=== PATIENT | female | born 1940 | race Hispanic/Latino ===

== ENCOUNTER 2017-06-11 10:00 | Inpatient (IN) | payer MEDICARE ==
[2017-06-11 12:27] VITALS: BMI 29.5
[2017-06-18] MEDS ORDERED: CEFAZOLIN/Water 2 GM/20 ML SYRINGE ONE (06:31)
[2017-06-18] MEDS ORDERED: Thrombin 5000 UNITS/5 ML VIAL ONE (06:37)
[2017-06-18] MEDS ORDERED: Sodium Chloride 0.9% 10 ML ONE (06:37)
[2017-06-18] MEDS ORDERED: Fentanyl 250 MCG/5 ML VIAL ONE (07:00)
[2017-06-18] MEDS ORDERED: Midazolam HCl 2 mg/2 ml Vial ONE (07:01)
[2017-06-18] MEDS ORDERED: PHENYLEPHRINE-NS 100 MCG/ML 10 ML SYRINGE ONE (07:40)
[2017-06-18] MEDS ORDERED: Lidocaine 1% PF 5 ML VIAL ONE (07:40)
[2017-06-18] MEDS ORDERED: Ondansetron HCl/PF 4 MG/2 ML Vial ONE (07:40)
[2017-06-18] MEDS ORDERED: Glycopyrrolate 0.2 MG/ML 5 ML SYRINGE ONE (07:40)
[2017-06-18] MEDS ORDERED: Dexamethasone 20 MG/5 ML VIAL ONE (07:40)
[2017-06-18] MEDS ORDERED: Propofol 200 MG/20 ML VIAL ONE (07:40)
[2017-06-18] MEDS ORDERED: Promethazine HCl 25 MG/ML VIAL IM PRN ×2 (10:10→10:46)
[2017-06-18] MEDS ORDERED: Promethazine HCl 25 MG/ML VIAL SLOW IVP PRN (10:10)
[2017-06-18] MEDS ORDERED: Ondansetron HCl/PF 4 MG/2 ML Vial IVP PRN (10:10)
[2017-06-18] MEDS ORDERED: Mag-Al 1200 mg/1200 mg/30 ML UDCUP PO PRN (10:46)
[2017-06-18] MEDS ORDERED: Acetaminophen/Codeine 30-300mg Tablet PO PRN (10:46)
[2017-06-18] MEDS ORDERED: HYDROcodone/Acetaminophen 7.5/325 mg Tablet PO PRN (10:46)
[2017-06-18] MEDS ORDERED: Bisacodyl 10 MG SUPP PR PRN (10:46)
[2017-06-18] MEDS ORDERED: Fleet Enema 133 ML BOT PR PRN (10:46)
[2017-06-18] MEDS ORDERED: tiZANidine HCl 4 MG TAB PO PRN (10:46)
[2017-06-18] MEDS ORDERED: traMADol HCl 50 MG TAB PO PRN (10:46)
[2017-06-18] MEDS ORDERED: Acetaminophen 325 MG TAB PO PRN (10:46)
[2017-06-18] MEDS ORDERED: Milk Of Magnesia 30 ML UDCUP PO PRN (10:46)
[2017-06-18] MEDS ORDERED: Fentanyl 100 MCG/2 ML VIAL ONE (10:49)
--- NOTE | 2017-06-18 12:35 | OP ---
DATE OF SURGERY: 06/18/2017 SURGEON: Omer Acosta M.D. [employer]: Kevin Avila PA-C. OR: OR #5. WOUND: Type 1 wound. 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 POSTPROCEDURE DIAGNOSES: Multilevel cervical stenosis with myelopathy and radiculopathy with chroni c steroid and methotrexate use. PROCEDURE: 1. Anterior C4-C5, C5-C6, C6-C7 diskectomies and decompression of the spinal cord and nerve roots a nd preparation of the endplates C4-C5, C5-C6, C6-C7. 2. Placement of interbody spacer, C4-C5, C5-C6, C6-C7 arthrodesis packed with local bone autograft obtained from same incision and allograft, C4-C5, C5-C6, C6-C7. 3. Anterior cervical plate and screw fixation C4, C5, C6, C7. 4. Use above her operative microscope for microdissection. PROCEDURE: After informed consent was obtained from the patient, the patient brought to OR 5. [facility] er patient pause and identification was carried out. She was placed under excellent general endotra cheal anesthesia and positioned supine on the operating room table. The C4, C5, C6, C7 segments wer e identified. An oblique pinky was made on the right side of the neck to allow for approach to this region. This area was sterilely cleansed, prepared, and draped. Proper patient pause and identific ation was carried out. The wound was then opened with a combination of sharp, monopolar and blunt d issection, and we proceeded lateral to the tracheoesophageal bundle and medial to the right carotid sheath. We identified the prevertebral layer of deep cervical fascia. We then dissected at the C4, C5, C6, C7 segments, the longus colli was swept laterally and retractors were placed following loca lization. Distraction then occurred at C4-C5 and a diskectomy was performed with the use of micros ope for microdissection. Satisfied with our decompression, spacer of appropriate dimension was plac ed and had been packed with local bone autograft obtained from same incision and allograft at C4-C5, distraction occurred at C5-C6 and diskectomy at C5-C6 was performed interbody spacer of appropriate dimension was then placed at C5-C6 packed with graft for arthrodesis at C5-C6. Distraction at C6-C 7 then occurred and then a diskectomy was performed at C6-C7 and interbody spacer of appropriate dim ension was then placed at C6-C7 for arthrodesis. We were satisfied with our construct at that point . Then a plate was placed and affixed to the cervical spine at C4, C5, C6, C7. Final tightening oc curred. Copious irrigation occurred throughout and hemostasis was maximized. The wound was closed in anatomic layers. Satisfied with both gross and fluoroscopic visualization of our construct the w ound was closed over a drain. The patient then emerged from anesthesia.
[2017-06-18] MEDS: CEFAZOLIN/Water 2 GM/20 ML SYRINGE SLOW IVP SCH ×2 (14:42→21:13)
[2017-06-18] MEDS: Sodium Chloride 0.9% 1,000 ML IV SCH (18:57)
[2017-06-18] MEDS ORDERED: FLU VACC TS2017-18 (>65YR) 0.5 ML SYRINGE IM ONE (19:30)
[2017-06-18] MEDS: predniSONE 5 MG TAB PO SCH (21:13)
[2017-06-19] MEDS: Sodium Chloride 0.9% 1,000 ML IV SCH ×2 (02:59→15:26)
[2017-06-19] MEDS: CEFAZOLIN/Water 2 GM/20 ML SYRINGE SLOW IVP SCH ×3 (05:01→21:18)
[2017-06-19] MEDS: Potassium Chloride 10 MEQ TAB PO SCH (07:53)
[2017-06-19] MEDS: Escitalopram Oxalate 10 mg Tablet PO SCH (07:54)
[2017-06-19] MEDS: Lisinopril 10 MG TAB PO SCH (07:54)
[2017-06-19] MEDS: predniSONE 5 MG TAB PO SCH ×2 (07:54→20:37)
--- NOTE | 2017-06-19 10:50 | PRG ---
DATE OF SERVICE: 06/19/2017 Ms. Anguiano is doing well, postoperative day 1. She is tolerating orals and ambulating. She feels as if her upper and lower extremities are improved compared to before surgery. Her drain output has bee n approximately 75 mL. We will monitor this, this morning. We will arrange for home health per the family's request. Her exam is stable from preoperatively.
[2017-06-20] MEDS: Sodium Chloride 0.9% 1,000 ML IV SCH (01:53)
[2017-06-20] MEDS: CEFAZOLIN/Water 2 GM/20 ML SYRINGE SLOW IVP SCH (06:16)
[2017-06-20] MEDS: Lisinopril 10 MG TAB PO SCH (08:49)
[2017-06-20] MEDS: predniSONE 5 MG TAB PO SCH (08:49)
[2017-06-20] MEDS: Escitalopram Oxalate 10 mg Tablet PO SCH (08:49)
[2017-06-20] MEDS: Potassium Chloride 10 MEQ TAB PO SCH (08:49)
[2017-06-20 11:40] VITALS: TEMP 98.7
[2017-06-20 13:22] VITALS: BP 172/85
--- NOTE | 2017-06-20 13:25 | PRG ---
DATE OF SERVICE: 06/20/2017 This is a subsequent inpatient progress note. Ms. Anguiano is now postoperative day #2 having undergon e C4-C7 ACDF with Dr. Acosta. The patient states she is doing very well postoperatively. She is not taking any pain medication. She denies any arm pain. She states she feels as though her hands are functioning better postoperatively. She has been up walking to the bathroom and is tolerating a chinedu r liquid diet. She remains at neurologic baseline with good strength in the bilateral upper and bila teral lower extremities. Her BRANDEN drain was removed today without difficulty. We did discuss postoper ative activity restrictions and I would like her to continue to wear her [place] collar at all times an d use a [place] collar for showers until her next followup appointment with us. She will be dis charged later today to senior living and she is agreeable to this.
== END 2017-06-20 11:30 | disposition swing bed (61) | DRG 473 ==
LOC: SURG A 06-18 06:16
PROVIDERS: ADMIT Surgery; ATTEND Surgery
PROC: 0RG20A0 Fusion of 2 or more Cervical Vertebral Joints with Interbody Fusion Device, Anterior Approach, Anterior Column, Open Approach (ICD-10-PCS; principal; 2017-06-18)
PROC: 0RB30ZZ Excision of Cervical Vertebral Disc, Open Approach (ICD-10-PCS; 2017-06-18)
DX: M48.02 Spinal stenosis, cervical region (principal); Z23 Encounter for immunization; M54.12 Radiculopathy, cervical region
CPT/HCPCS: 76001; 90471; 90682; 90732; A4216; C1713; G0008; G0009; G8978-GP-CL; G8979-GP-CJ; G8987-GO-CK; G8988-GO-CI; J0131; J1100; J2001; J2250; J2405; J2550; J2704; J3010; J3490; Q2036

== ENCOUNTER 2020-01-08 12:34 | Outpatient (CLI) | payer MEDICARE, OTHER ==
--- NOTE | 2020-01-08 13:33 | CT ---
CT BRAIN NONCONTRAST: DATE: 01/08/2020 HISTORY: 79-year-old female with movement abnormality and generalized weakness. Preoperative CT. FINDINGS: There is no evidence of acute intra-axial or extra-axial hemorrhage. There is no midline shift or any other mass effect. There is no extra-axial fluid collection. Moderate ventriculomegaly involving the bodies of the lateral ventricles, probably due to central atrophy. Mild ventriculomegaly involvin g third ventricle. Calvarium is intact. There is diffuse brain parenchymal volume loss. There are low attenuation areas in the white matter. These are nonspecific, but in a patient of this age, they are probably chronic ischemic white matter changes due to microvascular atherosclerosis. Symmetrical bilateral basal ganglionic globus pallidus calcifications. In addition to midline tiny ca lcification at anterior interhemispheric falx, there is also a tiny focal right paramedian frontal calcification. 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 This was present on prior CT of 04/12/2009. IMPRESSION: 1) No acute intracranial findings. 2) involutional changes and chronic ischemic white matter changes.
--- NOTE | 2020-01-08 14:41 | CT ---
CT OF THE CERVICAL SPINE WITHOUT CONTRAST: 01/08/20 INDICATION: History of preop evaluation for cervical radiculopathy and generalized weakness for one year. Pain in the right leg. COMPARISON: Prior MR of the cervical spine from [facility] dated 06/03/17. FINDINGS: Since the comparison examination there has been performance of an ACDF spanning C4 through C7 with so lid osseous incorporation of the interbody bone graft. There is anterolisthesis of C7 on T1 which is degenerative of approximately 5 mm. This is relatively stable to the comparison MR. The visualized pr evertebral soft tissues appear within normal limits. The left internal carotid artery is tortuous and runs retropharyngeal. Lung apices are clear. Mastoid air cells are clear. At C2-3, there is no appreciable osseous central canal or neural foraminal narrowing demonstrated. At C3-4, there is moderate left neural foraminal narrowing which appears similar to the comparison ex amination. There is mild right neural foraminal narrowing due to uncovertebral hypertrophy, facet bran nt degenerative change. There is severe left facet joint degenerative change. At C4-5, there is some mild right osseous neural foraminal narrowing. At C5-6, there is mild to moderate right and mild left osseous neural foraminal narrowing. It appears mildly improved from the prior examination. There is at least mild osseous central canal narrowing a t this level. At C6-7, there is a residual osteophyte complex and uncovertebral hypertrophy inducing moderate to se talia right and moderate left neural foraminal narrowing which is likely stable to the prior exam. The re is at least mild to moderate osseous central canal narrowing. At C7-T1, there is no appreciable osseous central canal or neural foraminal narrowing. IMPRESSION: 1. Postoperative cervical spine. 2. Multilevel neural foraminal and central canal narrowing as above. POS: [facility]
== END 2020-01-08 12:35 | disposition home or self-care (01) ==
LOC: CT 12:34
PROVIDERS: ATTEND Surgery
DX: M50.10 Cervical disc disorder with radiculopathy, unspecified cervical region (principal); M48.02 Spinal stenosis, cervical region; Z98.1 Arthrodesis status
CPT/HCPCS: 70450; 72125

== ENCOUNTER 2020-01-11 06:13 | Outpatient (CLI) | payer MEDICARE, OTHER ==
--- NOTE | 2020-01-18 11:40 | EKG ---
Test Reason : Blood Pressure : / mmHG Vent. Rate : 066 BPM Atrial Rate : 066 BPM P-R Int : 158 ms QRS Dur : 082 ms QT Int : 410 ms P-R-T Axes : 054 032 044 degrees QTc Int : 429 ms Normal sinus rhythm Normal ECG Confirmed by MAHOGANY HO ([id number]) on 01/18/2020 11:40:17 AM Referred By: EZRA Confirmed By:MAHOGANY HO
== END 2020-01-11 06:14 | disposition home or self-care (01) ==
LOC: LABBT 06:13
PROVIDERS: ATTEND Surgery
DX: Z01.818 Encounter for other preprocedural examination (principal); Z11.59 Encounter for screening for other viral diseases; M48.061 Spinal stenosis, lumbar region without neurogenic claudication; M50.00 Cervical disc disorder with myelopathy, unspecified cervical region
CPT/HCPCS: 93005; 93010

== ENCOUNTER 2020-01-28 06:58 | Outpatient (CLI) | payer MEDICARE, OTHER ==
[2020-01-28 16:38] LABS: Hemoglobin 10.2 g/dL (12.0-16.0); Mean Corpuscular HGB CONC 33.2 g/dL (32.0-36.0); Mean Corpuscular Hemoglobin 31.5 pg (27.0-31.0); Mean Corpuscular Volume 94.9 fL (78.0-98.0); Mean Platelet Volume 8.5 fL (7.4-10.4); Platelet Count 263 thou/uL (130-400); RBC Distribution Width 11.9 % (11.5-14.5); Red Blood Cell (RBC) Count 3.23 mill/uL (4.20-5.40); White Blood Cell (WBC) Count 6.4 thou/uL (4.8-10.8)
[2020-01-28 16:59] LABS: INR-International Normal Ratio 1.1; PTT 27.9 sec (22.9-36.1); Prothrombin Time 13.9 sec (12.0-14.7)
[2020-01-28 17:29] LABS: Anion Gap 12 mmol/L (10-20); BUN (Urea Nitrogen) 22 mg/dL (9.8-20.1); Calc. Creatinine Clearance 0 mL/min (70-130); Calcium 8.3 mg/dL (7.8-10.44); Carbon Dioxide 18 mmol/L (23-31); Chloride 114 mmol/L (98-107); Estimated GFR-MDRD 43; Glucose 94 mg/dL (83-110); Potassium 4.7 mmol/L (3.5-5.1); Sodium 139 mmol/L (136-145)
[2020-01-29 12:06] LABS: SARS-CoV-2 MS2 Positive; SARS-CoV-2 N Gene Negative; SARS-CoV-2 S Gene Negative; SARS-CoV-2 orf1ab Negative
== END 2020-01-28 06:59 | disposition home or self-care (01) ==
LOC: LABBT 06:58
PROVIDERS: ATTEND Surgery
DX: Z01.818 Encounter for other preprocedural examination (principal); Z11.59 Encounter for screening for other viral diseases; M48.02 Spinal stenosis, cervical region; M50.00 Cervical disc disorder with myelopathy, unspecified cervical region
CPT/HCPCS: 80048; 85027; 85610; 85730; 86850; 86900; 86901; U0003; 87635; 93005; 93010